=== PATIENT | female | born 1975 | race Asian ===

== ENCOUNTER 2024-04-15 15:55 | Outpatient (AMB) | payer MEDICARE, MEDICAID, SELFPAY ==
--- NOTE | 2024-04-15 15:31 | MHC.PC.OV ---
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 Intake Note: New patient visit Is last menstrual period known: Yes Last menstrual period: 04/11/24 Allergies amoxicillin [AMOXICILLIN] Allergy (Mild, Verified 04/15/24 16:07) UNKNOWN, rash, severe rash carbamazepine [From TEGRETOL] Allergy (Unknown, Verified 04/15/24 16:07) UNKNOWN diphenhydramine [From BENADRYL] Allergy (Unknown, Verified 04/15/24 16:07) UNKNOWN diphtheria,pertussis (acell),tetanu Allergy (Unknown, Verified 04/15/24 16:07) paralyzed Iodinated Contrast Media [IV CONTRAST] Allergy (Unknown, Verified 04/15/24 16:07) HIVES penicillin G Allergy (Unknown, Verified 04/15/24 16:07) severe rash penicillin V Allergy (Unknown, Verified 04/15/24 16:07) rash Penicillins [PENICILLINS] Allergy (Unknown, Verified 04/15/24 16:07) UNKNOWN phenytoin [From DILANTIN] Allergy (Unknown, Verified 04/15/24 16:07) UNKNOWN DPT Allergy (Unknown, Uncoded 04/15/24 16:07) glenna paresis TETANUS & DIPHTHERIA TOX,ADULT Allergy (Unknown, Uncoded 04/15/24 16:07) NUMBNESS Medication List - Last Reconciled 04/15/24 by Natalia Lal MD carbamazepine ER (Carbatrol) mg PO fexofenadine (Telma Allergy) 180 mg PO DAILY Tobacco use date assessed: 04/15/24 Dental Screening Dental Screen Date: 04/15/24 Did you have a dental visit in the last 12 months?: Yes Did you have a dental problem in the last 6 months where you did not have access to dental care?: No Was dental information given to patient?: Patient has dentist HPI HPI Comments History of Present Illness Details This is a 49 year old with 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 Needs all preventive care measures updated. colon ca screening, mammo. [place] with tdap ROS CONSTITUTIONAL: Denies weight loss, fever and chills. HEENT: Denies changes in vision and hearing. RESPIRATORY: Denies SOB and cough. CV: Denies palpitations and CP GI: Denies abdominal pain, nausea, vomiting and diarrhea. : Denies dysuria and urinary frequency. MSK: Denies new myalgia and joint pain. SKIN: Denies rash and pruritus. NEUROLOGICAL: Denies headache PSYCHIATRIC: Denies recent changes in mood. PHYSICAL EXAM: GENERAL: Alert and oriented x 3. NAD EYES: EOMI. Anicteric. HENT: Moist mucous membranes. No scleral icterus. No cervical lymphadenopathy. LUNGS: Clear to auscultation bilaterally. CARDIOVASCULAR: Regular rate and rhythm. No murmur. No JVD. ABDOMEN: Soft, non-tender +bs EXTREMITIES: No edema. Non-tender. SKIN: No rashes or lesions. Warm. NEUROLOGIC: No focal neurological deficits. CN II-XII grossly intact PSYCHIATRIC: Cooperative. Appropriate mood and affect [facility] Medical History (Updated 04/21/24 @ 11:54 by Natalia Lal MD) Epileptic seizures HTN (hypertension) Family History (Updated 04/15/24 @ 16:19 by Miladis Chris CMA) Mother HTN (hypertension) Diabetes Cardiovascular disease Other FH: mental illness Social History (Updated 04/15/24 @ 16:19 by Miladis Chris CMA) Housing: House (With brother and sister and law.) Patient Tobacco Use Status: Never used Tobacco e-Cigarette/Vaping Use: Never Used Second Hand Smoke Exposure: No service: Yes Current occupational status: unemployed Cognitive needs: Yes Hearing needs: No Vision needs: No Female Reproductive History Menstrual Date of last menstrual period: 04/11/24 Questionnaire PHQ-9 Over the last 2 weeks, how often have you been bothered by any of the following problems? 1. Little interest or pleasure in doing things: not at all 2. Feeling down, depressed, or hopeless: not at all 3. Trouble falling or staying asleep, or sleeping too much: not at all 4. Feeling tired or having little energy: not at all 5. Poor appetite or overeating: not at all 6. Feeling bad about yourself - or that you are a failure or have let yourself or your family down: not at all 7. Trouble concentrating on things, such as reading the newspaper or watching television: not at all 8. Moving or speaking so slowly that other people could have noticed. Or the opposite - being so fidgety or restless that you have been moving around a lot more than usual: not at all 9. Thoughts that you would be better off or of hurting yourself in some way: not at all Total score: 0 Depression Screening Interpretation: Negative Depression Screening Done: Yes [id number] - PHQ-9 Billing: Yes Source: Developed by Drs. Tico Massey, Anabel Handley, Jermaine Linda and colleagues, with an educational carolyn from [employer]. Thrive Questionnaire Date Thrive assessed: 04/15/24 I am a: Patient What is your living situation today?: I have a steady place to live Within the past 12 months, did the food you bought not last and you didn't have the money to get more?: Never true Within the past 12 months, did you worry whether your food would run out before you got money to buy more?: Never true Do you have trouble paying for medicines?: No Do you have trouble getting transportation to medical appointments?: No Do you have trouble taking care of your child, family member or friend?: No Do you have trouble with day-to-day activities such as bathing, preparing meals, shopping, managing finances, etc.?: No Are you currently unemployed and looking for a job?: No Are you interested in more education?: No Please select the resources that you would like help with: None Currently or been in a relationship where the following occur: no concerns reported THRIVE Score: 0 AUDIT C Alcohol Use Questionnaire (AUDIT-C) 1. How often do you have a drink containing alcohol?: Never 2. How many drinks containing alcohol do you have on a typical day when you are drinking?: 1 or 2 Total Score: 0 NAM-7 AMB Questionnaire NAM-7 Date ANM - 7 assessed: 04/15/24 Feeling nervous, anxious, or on edge: 0 = Not at all Not being able to stop or control worryin = Not at all Worrying too much about different things: 0 = Not at all Trouble relaxin = Not at all Being so restless that it is hard to sit still: 0 = Not at all Becoming easily annoyed or irritable: 0 = Not at all Feeling afraid as if something awful might happen: 0 = Not at all Total NAM-7 score (0-4 normal; 5-9 mild; 10-14 moderate; 15-21 severe): 0 Source: Developed by Drs. Tico Massey, Anabel Handley, Jermaine Linda and colleagues, with an educational carolyn from [employer]. NAM-7 Assessment Billing NAM-7 Assessment Tool: NAM-7 Assessment 25151 Physical exam (Primary Care) Vital Signs: Last Vital Signs Temp 98.4 F 04/15/24 16:14 Pulse 83 04/15/24 16:14 Resp 12 04/15/24 16:14 BP 136/83 04/15/24 16:14 Pulse Ox 99 04/15/24 16:14 Oxygen Delivery Method Room Air 04/15/24 16:14 BMI result Body Mass Index 32.5 Tobacco/Smoking Status: Tobacco use Status Tobacco use date assessed 04/15/24 04/15/24 16:20 Patient Tobacco Use Status Never used Tobacco 04/15/24 16:20 e-Cigarette/Vaping Use Never Used 04/15/24 16:20 PHQ-9: PHQ-9 Score PHQ-9: Total score 0 04/15/24 16:29 Depression Screening Interpretation: Negative Thrive Assessment: Date of Thrive Assessment Date Thrive assessed 04/15/24 04/15/24 16:20 Currently or been in a relationship where the following occur: no concerns reported Assessment and Plan Assessment & Plan (1) Recurrent UTI: Code(s): N39.0 - Urinary tract infection, site not specified (2) Epileptic seizures: Code(s): G40.909 - Epilepsy, unspecified, not intractable, without status epilepticus Qualifiers: Epilepsy type: unspecified Intractability: not intractable Status epilepticus: without status epilepticus Qualified Code(s): G40.909 - Epilepsy, unspecified, not intractable, without status epilepticus Orders: Orders Lipid Panel 04/15/24 Z12.4 - Encounter for screening for malignant neoplasm of cervix, Z13.0 - Encounter for screening for diseases of the blood and blood-forming organs and certain disorders involving the immune mechanism, Z13.220 - Encounter for screening for lipoid disorders, Z13.228 - Encounter for screening for other metabolic disorders Complete Blood Count Auto Diff 04/15/24 Z12.4 - Encounter for screening for malignant neoplasm of cervix, Z13.0 - Encounter for screening for diseases of the blood and blood-forming organs and certain disorders involving the immune mechanism, Z13.220 - Encounter for screening for lipoid disorders, Z13.228 - Encounter for screening for other metabolic disorders Comprehensive Met. Panel 04/15/24 Z12.4 - Encounter for screening for malignant neoplasm of cervix, Z13.0 - Encounter for screening for diseases of the blood and blood-forming organs and certain disorders involving the immune mechanism, Z13.220 - Encounter for screening for lipoid disorders, Z13.228 - Encounter for screening for other metabolic disorders TSH reflex Free T4 04/15/24 Z12.4 - Encounter for screening for malignant neoplasm of cervix, Z13.0 - Encounter for screening for diseases of the blood and blood-forming organs and certain disorders involving the immune mechanism, Z13.220 - Encounter for screening for lipoid disorders, Z13.228 - Encounter for screening for other metabolic disorders Carbamazepine Tegretol 04/15/24 Z12.4 - Encounter for screening for malignant neoplasm of cervix, Z13.0 - Encounter for screening for diseases of the blood and blood-forming organs and certain disorders involving the immune mechanism, Z13.220 - Encounter for screening for lipoid disorders, Z13.228 - Encounter for screening for other metabolic disorders Referrals Cologuard Test Z12.11 - Encounter for screening for malignant neoplasm of colon, Z12.12 - Encounter for screening for malignant neoplasm of rectum MALTED MILK MIXER Referral Z12.4 - Encounter for screening for malignant neoplasm of cervix Allergy & Immunology Referral Z88.9 - Allergy status to unspecified drugs, medicaments and biological substances Medications: New diazepam (Valium) 1-2 tabs orally as needed for anxiety PRN; 2 tabs 0RF sleep Coding Level of Care Code Tele New Pt Level 4 (73663) Complex EM visit Add On G2211 Diagnoses Recurrent UTI N39.0 Nonintractable epilepsy without status epilepticus, unspecified epilepsy type G40.909 Epilepsy type: unspecified Intractability: not intractable Status epilepticus: without status epilepticus Additional Codes NAM-7 Assessment Billing - NAM-7 Assessment Tool: NAM-7 Assessment [id number] ([id number])
[2024-04-15 16:14] VITALS: BP 136/83; PULSE 83; RESP 12; TEMP 36.9; O2SAT 99; BMI 32.5
== END 2024-04-15 17:02 | disposition home or self-care (01) ==
PROVIDERS: PCP Internal Medicine; Visit Provider Internal Medicine
DX: N39.0 Urinary tract infection, site not specified (principal); G40.909 Epilepsy, unspecified, not intractable, without status epilepticus
CPT/HCPCS: 99214; G2211

== ENCOUNTER → 2024-04-18 13:45 | Outpatient (BNV) | payer MEDICARE, MEDICAID, SELFPAY | PROVIDERS: PCP Internal Medicine; Visit Provider Radiology Diagnostic Radiology | DX: Z12.31 Encounter for screening mammogram for malignant neoplasm of breast (principal) | CPT/HCPCS: 77063; 77067 ==

== ENCOUNTER 2024-04-18 13:46 | Outpatient (REF) | payer MEDICARE, MEDICAID, SELFPAY ==
--- NOTE | ~2024-04-18 | MM_ITS ---
EXAMINATION: MM SCREENING DIGITAL BREAST TOMOSYNTHESIS, BILATERAL CLINICAL INFORMATION: Screening. Asymptomatic. COMPARISON: Mammography: Baseline exam. TECHNIQUE: Digital breast tomosynthesis is performed in both the craniocaudal and mediolateral oblique views along with computer-aided detection (CAD). Synthesized 2D images are generated from the tomosynthesis. An exaggerated 2-D lateral left CC view was also obtained. Patient is mentally challenged, and 2 technologists were required to obtain reasonable quality images. Interpretation will be provided in light of this. FINDINGS: The breasts are heterogeneously dense, which may obscure small masses (ACR BI-RADS breast composition Category c). In the right breast, anterior one third, 9:00 axis, there are linear grouped calcifications which appear related to an underlying blood vessel, demonstrate tram tracking, and are therefore vascular in nature. A rounded asymmetry on the right cc view, slightly lateral to the nipple line, posterior one third, is most likely superimposition artifact on the tomographic views, although we will obtain a small paddle CC and MLO spot compression view for proof. In addition we will obtain a 90 degree mediolateral view right breast. Otherwise there are no suspicious masses, suspicious grouped calcifications, or areas of architectural distortion in either breast. There is no skin or axillary abnormality. MM/MM tomosynthesis screening BI IMPRESSION: 1 view asymmetry right breast CC view only, without definite MLO correlate. This has an appearance of superimposition artifact on tomographic views. We will obtain diagnostic views to definitively characterize to include small paddle spot compression 3-D right CC and MLO views, right 3-D CC full-field rolled medial and rolled lateral views, as well as a full-field 3-D 90 degree ML view. Ultrasound will be scheduled at the discretion of the interpreting radiologist. There are no suspicious abnormalities in the left breast. Subtle calcifications right breast 9:00 axis are likely vascular, demonstrate tram tracking, and do not meet biopsy threshold. ASSESSMENT: BI-RADS BI-RADS 0 - Incomplete: Needs additional Imaging. RECOMMENDATION: 1. Additional views of the right breast. 2. Targeted ultrasound if warranted after review of the additional views. 3. Radiology department staff will contact the patient for additional imaging. Additional Imaging required This examination should not preclude the clinical evaluation of a suspicious palpable abnormality.
== END 2024-04-18 13:47 | disposition home or self-care (01) ==
LOC: HO.MAMMO 13:46
PROVIDERS: PCP Internal Medicine; Visit Provider Internal Medicine
DX: Z12.31 Encounter for screening mammogram for malignant neoplasm of breast (principal)
CPT/HCPCS: 77063; 77067

== ENCOUNTER 2024-06-03 14:02 | Outpatient (REF) | payer MEDICARE, MEDICAID, SELFPAY ==
--- NOTE | ~2024-06-03 | MM_ITS ---
EXAMINATION: MM DIAGNOSTIC DIGITAL BREAST TOMOSYNTHESIS, RIGHT CLINICAL INFORMATION: Evaluate one view asymmetry right breast seen on CC view just lateral to the nipple line, posterior one third, with possible correlate on the superior MLO view. COMPARISON: Mammography: 04/18/2024. TECHNIQUE: Digital breast tomosynthesis is performed in the following views: Full-field digital 3-D right ML view x2, 3-D spot compression right MLO view, and 3-D spot compression right CC view x2. Computer-aided diagnosis was used for this study. FINDINGS: The breasts are heterogeneously dense, which may obscure small masses (ACR BI-RADS breast composition Category c). Spot compression and additional views demonstrate the asymmetry does not persist and effaces completely. Findings are consistent with superimposition artifact of normal overlapping fibroglandular tissues. There are no suspicious findings. MM/MM tomosynthesis diagnostic RT IMPRESSION: -There are no persistent findings suspicious for malignancy. -Recommend the patient resume routine annual screening in one year. ASSESSMENT: BI-RADS BI-RADS 1 - Negative RECOMMENDATION: 1 year F/U Results were provided to the patient at time of visit by the technologist. This patient's information was entered into a reminder system with a target due date for their next mammogram.
== END 2024-06-03 14:03 | disposition home or self-care (01) ==
LOC: HO.MAMMO 14:02
PROVIDERS: PCP Internal Medicine; Visit Provider Internal Medicine
DX: N64.89 Other specified disorders of breast (principal)
CPT/HCPCS: 77061; 77065

== ENCOUNTER → 2024-06-03 14:30 | Outpatient (BNV) | payer MEDICARE, MEDICAID, SELFPAY | PROVIDERS: PCP Internal Medicine; Visit Provider Radiology Diagnostic Radiology | DX: R92.8 Other abnormal and inconclusive findings on diagnostic imaging of breast (principal) | CPT/HCPCS: 77065; G0279 ==

== ENCOUNTER 2024-07-09 09:40 | Outpatient (REF) | payer MEDICARE, MEDICAID, SELFPAY ==
[2024-07-09 09:55] LABS: MANUAL DIFF FLAG NO
[2024-07-09 10:32] LABS: Basophils Percent Auto 0.7 % (0-2); Eosinophils Absolute Auto 0.1 X10*3/uL (0.0-0.4); Hematocrit 42.7 % (37.0-47.0); Hemoglobin 14.6 g/dl (12.0-16.0); Imm Gran Abs Auto 0.01 X10*3/uL (0.00-0.03); Imm Gran Pct Auto 0.2 % (0.0-0.4); Lymphocytes Absolute Auto 1.3 X10*3/uL (1.2-4.9); Lymphocytes Percent Auto 30.1 % (20-40); Mean Corpuscular HGB Conc 34.2 g/dl (31.0-35.0); Mean Corpuscular Hemoglobin 33.1 pg (27.0-33.0); Mean Corpuscular Volume 96.8 fL (80.0-98.0); Mean Platelet Volume 9.4 fL (9.4-12.3); Monocytes Absolute Auto 0.3 X10*3/uL (0.1-1.2); Monocytes Percent Auto 7.7 % (2-11); Neutrophils Absolute Auto 2.6 x10*3/uL (2.0-8.3); Neutrophils Percent Auto 59.3 % (45-73); Platelet Count 156 X10*3/uL (160-400); Red Blood Count 4.41 X10*6/uL (4.20-5.50); White Blood Count 4.4 X10*3/uL (4.8-10.8)
[2024-07-09 11:19] LABS: Carbamazepine Tegretol 10.4 mcg/mL (5.0-12.0)
[2024-07-09 11:26] LABS: Alanine Aminotransferase 16 U/L (0-31); Alkaline Phosphatase 134 U/L (39-117); Anion Gap 11 (12-20); Aspartate Amino Transferase 15 U/L (5-31); Bilirubin Total 0.5 mg/dL (0.0-1.0); Blood Urea Nitrogen 11 mg/dL (9-16); Calcium 8.9 mg/dL (8.4-10.2); Carbon Dioxide 25 mmol/L (22-29); Chloride 105 mmol/L (96-108); Cholesterol 191 mg/dL (<200); Estimated Glomerular Filt Rate > 60; Glucose Random 93 mg/dL (60-115); HDL Cholesterol 58 mg/dL (>40); LDL Cholesterol Calculated 119 mg/dL (<100); Potassium 3.9 mmol/L (3.3-5.1); Sodium 137 mmol/L (135-145); TSH reflex Free T4 1.72 uIU/mL (0.32-4.0); Total Protein 7.9 g/dL (6.5-8.0); Triglycerides 73 mg/dL (<150)
== END 2024-07-09 09:41 | disposition home or self-care (01) ==
LOC: HO.LAB 09:40
PROVIDERS: PCP Internal Medicine; Visit Provider Internal Medicine
DX: Z13.0 Encounter for screening for diseases of the blood and blood-forming organs and certain disorders involving the immune mechanism (principal); Z13.228 Encounter for screening for other metabolic disorders; Z13.220 Encounter for screening for lipoid disorders; Z12.4 Encounter for screening for malignant neoplasm of cervix; Z20.2 Contact with and (suspected) exposure to infections with a predominantly sexual mode of transmission
CPT/HCPCS: 36415; 80053; 80061; 80156; 84443; 85025

== ENCOUNTER 2024-08-28 10:08 | Outpatient (AMB) | payer MEDICARE, MEDICAID, SELFPAY ==
--- NOTE | 2024-08-28 10:12 | A.OFFVIS_ITS ---
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 Intake Note: Accompanied by Step MotherSherie Precision Lens Grinder: Precision Lens Grinder Present (Patricia) Accompanied by: Step Parent Allergies amoxicillin [AMOXICILLIN] Allergy (Mild, Verified 08/28/24 10:25) UNKNOWN, rash, severe rash carbamazepine [From TEGRETOL] Allergy (Unknown, Verified 08/28/24 10:25) UNKNOWN diphenhydramine [From BENADRYL] Allergy (Unknown, Verified 08/28/24 10:25) UNKNOWN diphtheria,pertussis (acell),tetanu Allergy (Unknown, Verified 08/28/24 10:25) paralyzed Iodinated Contrast Media [IV CONTRAST] Allergy (Unknown, Verified 08/28/24 10:25) HIVES penicillin G Allergy (Unknown, Verified 08/28/24 10:25) severe rash penicillin V Allergy (Unknown, Verified 08/28/24 10:25) rash Penicillins [PENICILLINS] Allergy (Unknown, Verified 08/28/24 10:25) UNKNOWN phenytoin [From DILANTIN] Allergy (Unknown, Verified 08/28/24 10:25) UNKNOWN DPT Allergy (Unknown, Uncoded 04/15/24 16:07) glenna paresis TETANUS & DIPHTHERIA TOX,ADULT Allergy (Unknown, Uncoded 04/15/24 16:07) NUMBNESS Is last menstrual period known: Yes Last menstrual period: 08/19/24 HPI Comments Details: She is a premenopausal woman presenting for new patient annual examination, accompanied by her step mom Debbie. Doing well with no concerns: LMP 08/19/24 usually last 3 days. She reports spotting for the last few days. No pelvic pain or urinary symptoms. Admits to not hydrating well 2 glasses of water a day and dark-colored urine. She tries to eat healthy and stays active with exercise-walking. Currently is never sexually active. She denies vaginal itching and irritation. STI screening offered; she declined. No family history patient adopted. First pelvic exam. Mammogram: 2023. Lives with her brother Teddy and his family. 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 Formerly lived with her mom who earlier this year. [facility] Medical History (Updated 08/28/24 @ 10:56 by Grace Bravo, CNM) Epileptic seizures HTN (hypertension) Family History (Updated 04/15/24 @ 16:19 by Miladis Chris CMA) Mother HTN (hypertension) Diabetes Cardiovascular disease Other FH: mental illness Social History (Updated 04/15/24 @ 16:19 by Miladis Chris CMA) Housing: House (With brother and sister and law.) Patient Tobacco Use Status: Never used Tobacco e-Cigarette/Vaping Use: Never Used Second Hand Smoke Exposure: No service: Yes Current occupational status: unemployed Cognitive needs: Yes Hearing needs: No Vision needs: No Female Reproductive History Menstrual Duration of menses: 3-5 days Date of last menstrual period: 08/19/24 Total pregnancies: 0 Date of Mammogram: 06/03/24 (bi-rad 1) Review of Systems Const All systems reviewed & are unremarkable except as noted in HPI and below Reports as per HPI Eyes Reports no additional complaints ENT Reports no additional complaints Card Reports no additional complaints Resp Reports no additional complaints GI Reports as per HPI and Reports no additional complaints Reports as per HPI Musc Reports no additional complaints Skin/Breast Reports as per HPI Neuro Reports no additional complaints Psych Reports no additional complaints Endo Reports no additional complaints Alex/Lymph Reports no additional complaints Aller/Immun Reports no additional complaints Physical Exam Vital Signs: Last Vital Signs BP 118/74 08/28/24 10:26 BMI result Body Mass Index 32.3 Const General: cooperative, healthy appearing, no acute distress, well developed and alert Orientation/consciousness: patient oriented x3 HEENT Head: Yes normal to inspection Eyes General: appearance normal, both eyes and all related structures Neck Neck: Yes normal visual inspection Thyroid: Thyroid normal Chest Chest palpation & inspection: normal inspection of the chest and other (no puckering, dimpling, peau de orange, retraction, discharge, masses) Breast/axilla inspection: normal inspection of the breasts Breast/axilla palpation: normal palpation of the breasts Resp Effort & Inspection: normal respiratory effort GI Inspection: Yes normal to inspection Palpation (GI): Soft to palpation Rectal Exam - Female: deferred Other: First pelvis-limited vaginal opening, utilized smallest Avina available. General: Yes bladder normal to palpation External Female Exam: normal external appearance and normal appearance of the urethra Speculum Exam - Vagina: normal appearance of the vagina, normal palpation and normal vaginal discharge Speculum Exam - Cervix: normal appearance of the cervix, normal palpation and Cervical mass present ( appears polypoid, pedunculated) Bimanual exam- vagina & uterus: normal bimanual exam, normal palpation, uterine size normal, bladder normal to palpation, normal palpation, non-tender and other (Bled readily with Pap) Bimanual Exam- Adnexa, other: no masses Skin General skin exam: no rashes or lesions noted Rashes: no rashes Neuro General: patient oriented x3 Cognition (Neuro): normal cognition Extrem General: Yes normal to inspection Psych Attitude: cooperative Thought process: Normal thought process present Results AMB Urinalysis, Automated UA Leukoctes 1 Rebecca/uL Last Edit by Becca Taylor Mariola on 08/28/24 10:34 UA Nitrite Negative Last Edit by Becca Taylor Mariola on 08/28/24 10:34 UA Urobilinogen 0 mg/dL Last Edit by Becca Taylor [facility] on 08/28/24 10:3 4 UA Protein 0.5 mg/dL Last Edit by Becca Taylor Mariola on 08/28/24 10:34 UA pH 6.5 Last Edit by Becca Taylor [facility] on 08/28/24 10:34 UA Blood 0 Zain/uL Last Edit by Becca Taylor Mariola on 08/28/24 10:[address] 1.015 Last Edit by Becca Taylor [facility] on 08/28/24 10:34 UA Ketone Negative Last Edit by Becca Taylor Mariola on 08/28/24 10:34 UA Bilirubin 0 mg/dL Last Edit by Becca Taylor [facility] on 08/28/24 10:34 UA Glucose 0 mg/dL Last Edit by Becca Taylor [facility] on 08/28/24 10:34 Results Reviewed Results Reviewed: Laboratory Last Values Urine pH (Auto) 6.5 08/28/24 10:[address] (Auto) 1.015 08/28/24 10:26 Urine Protein (Auto) 0.5 mg/dL 08/28/24 10:26 Glucose (UA)(Auto) 0 mg/dL 08/28/24 10:26 Urine Ketones (Auto) Negative 08/28/24 10:26 Urine Blood (Auto) 0 Zain/uL 08/28/24 10:26 Urine Nitrite (Auto) Negative 08/28/24 10:26 Urine Bilirubin (Auto) 0 mg/dL 08/28/24 10:26 Urine Urobilinogen (Auto) 0 mg/dL 08/28/24 10:26 Leukocyte Esterase (Auto) 1 Rebecca/uL 08/28/24 10:26 Assessment & Plan Assessment & Plan (1) Encounter for well woman exam with routine gynecological exam: Code(s): Z01.419 - Encounter for gynecological examination (general) (routine) without abnormal findings Category: Medical (2) Cervical polyp: Code(s): N84.1 - Polyp of cervix uteri Plan Discussed: Current recommendations for pap smears per ASCCP guidelines. Breast awareness and periodic breast exams. Return to the office for polypectomy procedure, anticipatory guidance reviewed. Cervical polyp described-with the use of web pictures. Maintain a healthy lifestyle including a well balanced diet and routine exercise. Use condoms for STI and prevention if ever sexually active. Mammogram yearly. Speaking to her primary care regarding setting up appointment for a colonoscopy. Patient verbalizes understanding and agrees to the plan of care. She was given opportunity to ask questions and all questions were answered to the best of my ability. RTO in one year for annual rn gynecology examination. This note is constructed using voice recognition software. While every effort has been made to ensure accuracy, museum attendant errors may have been included. Orders: Orders AMB Urinalysis Automated Today N39.0 - Urinary tract infection, site not specified, R30.0 - Dysuria Pap Smear Today Z01.419 - Encounter for gynecological examination (general) (routine) without abnormal findings HPV High risk Today Z01.419 - Encounter for gynecological examination (general) (routine) without abnormal findings Coding Level of Care Code New Pt Prev Care 40-64y(42646) Diagnoses Encounter for well woman exam with routine gynecological exam Z01.419 Cervical polyp N84.1
[2024-08-28 10:26] VITALS: BP 118/74; BMI 32.3
== END 2024-08-28 11:23 | disposition home or self-care (01) ==
LOC: HO.HWS 10:08
PROVIDERS: PCP Internal Medicine; Referring Provider Internal Medicine; Visit Provider Advanced Practice Midwife
DX: Z01.419 Encounter for gynecological examination (general) (routine) without abnormal findings (principal); N84.1 Polyp of cervix uteri; R30.0 Dysuria; N39.0 Urinary tract infection, site not specified
CPT/HCPCS: G0101; Q0091

== ENCOUNTER 2024-08-28 10:08 | Outpatient (REF) | payer MEDICARE, MEDICAID, SELFPAY ==
[2024-08-29 10:27] LABS: HPV 16,18/45 See PAP report
== END 2024-08-28 10:09 | disposition home or self-care (01) ==
LOC: HO.LNP 10:08
PROVIDERS: PCP Internal Medicine; Visit Provider Advanced Practice Midwife
DX: Z01.419 Encounter for gynecological examination (general) (routine) without abnormal findings (principal); Z11.51 Encounter for screening for human papillomavirus (HPV); N84.1 Polyp of cervix uteri; N39.0 Urinary tract infection, site not specified; R30.0 Dysuria
CPT/HCPCS: 81003; 87624; 88175; G0101; Q0091

== ENCOUNTER 2024-10-03 13:02 | Outpatient (AMB) | payer MEDICARE, MEDICAID, SELFPAY ==
--- NOTE | 2024-10-03 13:06 | MHC.OFFVIS ---
Vital Signs 10/03/24 13:10 Height 4 ft 11 in Weight 160 lb BMI 32.3 BP 110/76 Intake Visit Reasons: Polypectomy/30 mins Intake Note: Step mother Debbie Monotype Keyboard Operator: Monotype Keyboard Operator Present (Patricia) Accompanied by: Mother Allergies amoxicillin [AMOXICILLIN] Allergy (Mild, Verified 10/03/24 13:10) UNKNOWN, rash, severe rash carbamazepine [From TEGRETOL] Allergy (Unknown, Verified 10/03/24 13:10) UNKNOWN diphenhydramine [From BENADRYL] Allergy (Unknown, Verified 10/03/24 13:10) UNKNOWN diphtheria,pertussis (acell),tetanu Allergy (Unknown, Verified 10/03/24 13:10) paralyzed Iodinated Contrast Media [IV CONTRAST] Allergy (Unknown, Verified 10/03/24 13:10) HIVES penicillin G Allergy (Unknown, Verified 10/03/24 13:10) severe rash penicillin V Allergy (Unknown, Verified 10/03/24 13:10) rash Penicillins [PENICILLINS] Allergy (Unknown, Verified 10/03/24 13:10) UNKNOWN phenytoin [From DILANTIN] Allergy (Unknown, Verified 10/03/24 13:10) UNKNOWN DPT Allergy (Unknown, Uncoded 04/15/24 16:07) glenna paresis TETANUS & DIPHTHERIA TOX,ADULT Allergy (Unknown, Uncoded 04/15/24 16:07) NUMBNESS Is last menstrual period known: Yes Last menstrual period: 09/16/24 HPI Comments Details: Patient is here today for a polypectomy accompanied by her step mom Debbie. She reports she has had pelvic pain since her 1st visit and additional upper abdominal pain when she gets upset. She has no vaginal bleeding. Denies any urinary symptoms. Upset and tearful discussing the loss of her mother and how hard it is for her at this time a year. She admits to have good support with family and friends. COUNT INCLUDES THE [facility] Medical History (Updated 10/03/24 @ 14:15 by Grace Bravo CNM) Pelvic pain Epileptic seizures HTN (hypertension) Family History (Updated 04/15/24 @ 16:19 by Miladis Chris CMA) Mother HTN (hypertension) Diabetes Cardiovascular disease Other FH: mental illness Social History (Updated 04/15/24 @ 16:19 by Miladis Chris CMA) Housing: House (With brother and sister and law.) Patient Tobacco Use Status: Never used Tobacco e-Cigarette/Vaping Use: Never Used Second Hand Smoke Exposure: No service: Yes Current occupational status: unemployed Cognitive needs: Yes Hearing needs: No Vision needs: No Female Reproductive History Menstrual Date of last menstrual period: 09/16/24 Review of Systems Const All systems reviewed & are unremarkable except as noted in HPI and below Physical Exam Vital Signs: Last Vital Signs BP 110/76 10/03/24 13:10 BMI result Body Mass Index 32.3 Const General: cooperative, healthy appearing and no acute distress Orientation/consciousness: patient oriented x3 GI Inspection: Yes normal to inspection Palpation (GI): Soft to palpation and Other GI palpation findings present (Nontender) Rectal Exam - Female: visual inspection normal Other: Tense with the exam, small micro bur lesions bilateral hymen with opening a the small Avina. General: Yes bladder normal to palpation External Female Exam: normal appearance of the urethra Speculum Exam - Vagina: normal appearance of the vagina, normal palpation and normal vaginal discharge Speculum Exam - Cervix: normal appearance of the cervix, normal palpation and Other cervical findings present (Cervical polyp is not identified today.) Bimanual exam- vagina & uterus: normal bimanual exam, normal palpation, uterine size normal, bladder normal to palpation, normal palpation, uterine shape normal and non-tender Bimanual Exam- Adnexa, other: normal adnexae Neuro General: patient oriented x3 Assessment & Plan Assessment & Plan (1) Pelvic pain: Code(s): R10.2 - Pelvic and perineal pain Category: Medical Plan Discussed: Polypectomy not required. Plan pelvic ultrasound due to her pelvic pain. Spotting from the exam today should resolve in a few days. If any bleeding occurs that is heavy or prolonged to call immediately for evaluation. If pain becomes stronger or any other concerns to call the office for a sooner follow up. Discuss the grief process and healing. Follow up pelvic ultrasound, okay to have a tele visit-patient's family use preference. Cervical cultures obtained. The patient expressed understanding and agreement with the plan of care. All of her questions and concerns were addressed to the best of my ability. This note is constructed using voice recognition software. While every effort has been made to ensure accuracy, coin machine service repairer errors may have been included. Orders: Orders CT NG by PCR Today R10.2 - Pelvic and perineal pain US pelvic and transvaginal Today R10.2 - Pelvic and perineal pain Bacterial Vaginosis Panel Today R10.2 - Pelvic and perineal pain Coding Level of Care Code Est Pt Level 3 (41871) Diagnoses Pelvic pain R10.2
[2024-10-03 13:10] VITALS: BP 110/76; BMI 32.3
== END 2024-10-03 14:19 | disposition home or self-care (01) ==
PROVIDERS: PCP Internal Medicine; Visit Provider Advanced Practice Midwife
DX: R10.2 Pelvic and perineal pain (principal)
CPT/HCPCS: 99213

== ENCOUNTER 2024-10-03 13:02 | Outpatient (REF) | payer MEDICARE, MEDICAID, SELFPAY | END 2024-10-03 13:03 | disposition home or self-care (01) | LOC: HO.LNP 13:02 | PROVIDERS: PCP Internal Medicine; Visit Provider Advanced Practice Midwife | DX: R10.2 Pelvic and perineal pain (principal) | CPT/HCPCS: 0352U; 87491; 87591; 99212; 99459 ==

== ENCOUNTER 2024-10-03 14:02 | Outpatient (REF) | payer MEDICARE, MEDICAID, SELFPAY ==
[2024-10-04 15:06] LABS: CT PCR NOT DETECTED (Not Detect.); NG PCR NOT DETECTED (Not Detect.)
[2024-10-04 16:19] LABS: Bacterial Vaginosis PCR NEGATIVE (Negative); Candida Group PCR NOT DETECTED (Not Detect); Candida glab krusei PCR NOT DETECTED (Not Detect); Trichomonas vaginalis PCR NOT DETECTED (Not Detect)
== END 2024-10-03 14:03 | disposition home or self-care (01) ==
LOC: HO.LAB 14:02
PROVIDERS: Visit Provider Advanced Practice Midwife
DX: Z13.89 Encounter for screening for other disorder (principal)
CPT/HCPCS: 0352U; 87491; 87591

== ENCOUNTER 2024-10-30 12:38 | Outpatient (REF) | payer MEDICARE, MEDICAID, SELFPAY ==
--- NOTE | ~2024-10-30 | US_ITS ---
CLINICAL HISTORY: R10.2 - Pelvic and perineal pain US pelvis transvaginal Comparison: None Findings: Transvaginal scanning performed. Anteverted uterus is 8.1 cm length. Normal myometrium. Endometrium 9.0 mm thickness. Right ovary not visualized. Left ovary 5.3 x 3.4 x 4.1 cm. Normal color Doppler of left ovary. No free fluid. IMPRESSION: 1. No acute findings This document has been electronically signed by: Teddy Rebollar MD on 10/31/2024 18:15:38
== END 2024-10-30 12:39 | disposition home or self-care (01) ==
LOC: HO.US 12:38
PROVIDERS: PCP Internal Medicine; Visit Provider Advanced Practice Midwife
DX: R10.2 Pelvic and perineal pain (principal)
CPT/HCPCS: 76830; 76856

== ENCOUNTER → 2024-10-30 12:40 | Outpatient (BNV) | payer MEDICARE, MEDICAID, SELFPAY | PROVIDERS: PCP Internal Medicine; Visit Provider Specialist | DX: R10.2 Pelvic and perineal pain (principal) | CPT/HCPCS: 76830; 76856 ==

== ENCOUNTER 2024-11-26 09:36 | Outpatient (AMB) | payer MEDICARE, MEDICAID, SELFPAY ==
--- NOTE | 2024-11-26 09:36 | MHC.OFFVIS ---
Intake Visit Reasons: TV Ultrasound follow up Intake Note: cell #[phone] sister in law Nicole Health Researcher: Health Researcher Present Accompanied by: Sister Allergies amoxicillin [AMOXICILLIN] Allergy (Mild, Verified 11/26/24 09:37) UNKNOWN, rash, severe rash carbamazepine [From TEGRETOL] Allergy (Unknown, Verified 11/26/24 09:37) UNKNOWN diphenhydramine [From BENADRYL] Allergy (Unknown, Verified 11/26/24 09:37) UNKNOWN diphtheria,pertussis (acell),tetanu Allergy (Unknown, Verified 11/26/24 09:37) paralyzed Iodinated Contrast Media [IV CONTRAST] Allergy (Unknown, Verified 11/26/24 09:37) HIVES penicillin G Allergy (Unknown, Verified 11/26/24:37) severe rash penicillin V Allergy (Unknown, Verified 11/26/24 09:37) rash Penicillins [PENICILLINS] Allergy (Unknown, Verified 11/26/24 09:37) UNKNOWN phenytoin [From DILANTIN] Allergy (Unknown, Verified 11/26/24 09:37) UNKNOWN DPT Allergy (Unknown, Uncoded 11/26/24 09:37) glenna paresis TETANUS & DIPHTHERIA TOX,ADULT Allergy (Unknown, Uncoded 11/26/24 09:37) NUMBNESS Is last menstrual period known: Yes HPI Comments Details: Tele Health Visit Total time I personally spent on visit and management today: 21 minutes. Time spent included review of pertinent office notes in the electronic health record; review of laboratory and imaging results; review of personal family medical history; performing physical exam; discussing diagnosis and plan of care with the patient; documenting the encounter in the EMR. Patient presents to discuss: Pelvic ultrasound findings, due to history of pelvic pain. She has accompany by her [id number] Destiny for the video chat. She denies any pelvic pain at this time, Destiny adds that after a thorough discussion they believe the discomfort was due to her anxiety after her Pap smear. She tends to have abdominal pain when she is upset. [facility] Medical History (Updated 10/03/24 @ 14:15 by Grace Bravo CNM) Pelvic pain Epileptic seizures HTN (hypertension) Family History (Updated 04/15/24 @ 16:19 by Miladis Chris CMA) Mother HTN (hypertension) Diabetes Cardiovascular disease Other FH: mental illness Social History (Updated 04/15/24 @ 16:19 by Miladis Chris CMA) Housing: House (With brother and sister and law.) Patient Tobacco Use Status: Never used Tobacco e-Cigarette/Vaping Use: Never Used Second Hand Smoke Exposure: No service: Yes Current occupational status: unemployed Cognitive needs: Yes Hearing needs: No Vision needs: No Review of Systems Const All systems reviewed & are unremarkable except as noted in HPI and below Endo Reports no additional complaints Physical Exam Const General: cooperative, healthy appearing and no acute distress Psych Appearance: well kempt Attitude: cooperative Thought process: Normal thought process present Telehealth Telehealth Telehealth Platform: HaveMyShift Location of provider rendering services: practice address Location of patient: address on file Patient Identification confirmed using: Name, : Yes Telehealth method: video Patient verbally consented to treatment: Yes Patient verbally consented to billing insurance company: Yes Patient informed of any privacy concerns related to visit: Yes Results Reviewed Results Reviewed: [address] [address] Ultrasound Report Signed Patient: Mary Ann Isbell MR#: [id number] : 1975 Acct:[id number] Age/Sex: 49 / F ADM Date: 10/30/24 Loc: HO.US Attending Dr: Grace Bravo CNM Ordering Physician: Grace Bravo CNM Date of Service: 10/30/24 Procedure(s): US pelvic and transvaginal Accession Number(s): [id number] cc: Grace Bravo CNM; Natalia Lal MD~ CLINICAL HISTORY: R10.2 - Pelvic and perineal pain US pelvis transvaginal Comparison: None Findings: Transvaginal scanning performed. Anteverted uterus is 8.1 cm length. Normal myometrium. Endometrium 9.0 mm thickness. Right ovary not visualized. Left ovary 5.3 x 3.4 x 4.1 cm. Normal color Doppler of left ovary. No free fluid. IMPRESSION: 1. No acute findings This document has been electronically signed by: Teddy Rebollar MD on 10/31/2024 18:15:38 Dictated By: Teddy Rebollar MD Signed By: <Electronically signed by Teddy Rebollar MD in OV> 10/31/241815 DD/ 14 TD/TT: 10/31/241814 Multiple Resaw Operator: Assessment & Plan Assessment & Plan (1) Encounter to discuss test results: Code(s): Z71.2 - Person consulting for explanation of examination or test findings Plan Discuss pelvic ultrasound findings-normal. A cervical polyp was not seen at last exam after her Pap smear. Monitor menstrual cycles, report any unscheduled bleeding, bleeding episodes <24 days apart or heavy/prolonged menstrual bleeding. Call the office for a follow up for any concerns. Plans to call to schedule her mammogram for May. Annual exam next August appointment information provided. Self-help measures for anxiety including breathing techniques. The patient expressed understanding and agreement with the plan of care. All of her questions and concerns were addressed to the best of my ability. This note is constructed using voice recognition software. While every effort has been made to ensure accuracy, nursing education consultant errors may have been included. Coding Level of Care Code Tele Est Pt Level 3 (91927) Diagnoses Encounter to discuss test results Z71.2
== END 2024-11-26 10:21 | disposition home or self-care (01) ==
LOC: HO.HWS 09:36
PROVIDERS: PCP Internal Medicine; Visit Provider Advanced Practice Midwife
DX: R10.2 Pelvic and perineal pain (principal); Z71.2 Person consulting for explanation of examination or test findings
CPT/HCPCS: 99213

== ENCOUNTER → 2024-11-26 09:36 | Outpatient (BNVA) | payer MEDICARE, MEDICAID, SELFPAY | PROVIDERS: PCP Internal Medicine; Visit Provider Advanced Practice Midwife ==

== ENCOUNTER → 2025-04-21 11:15 | Outpatient (BNV) | payer MEDICARE, SELFPAY | PROVIDERS: PCP Internal Medicine; Visit Provider Internal Medicine | DX: Z12.31 Encounter for screening mammogram for malignant neoplasm of breast (principal) | CPT/HCPCS: 77063; 77067 ==

== ENCOUNTER 2025-04-21 11:16 | Outpatient (REF) | payer MEDICARE, SELFPAY | END 2025-04-21 11:17 | disposition home or self-care (01) | LOC: HO.MAMMO 11:16 | PROVIDERS: PCP Internal Medicine; Visit Provider Internal Medicine | DX: Z12.31 Encounter for screening mammogram for malignant neoplasm of breast (principal) | CPT/HCPCS: 77063; 77067 ==

== ENCOUNTER 2025-05-19 14:14 | Outpatient (AMB) | payer MEDICARE, MEDICAID, SELFPAY ==
[2025-05-19 14:24] VITALS: BP 136/94; PULSE 79; RESP 12; TEMP 37; O2SAT 99; BMI 31.7
--- NOTE | 2025-05-19 14:24 | A.OFFPC_ITS ---
Vital Signs 05/19/25 14:24 05/19/25 14:33 Height 4 ft 11 in Weight 157 lb BMI 31.7 BP 136/94 H 136/84 Blood Pressure Location Lt brachial Lt brachial Position Sitting Sitting Respiration 12 Pulse 79 Pulse Source Pulse Oximeter Temp 98.6 F Temp Source Oral Pulse Oximetry (%) 99 Oxygen Delivery Method Room Air Intake Visit Reasons: Annual Wellness Intake Note: Physical. Got allergy tested at [facility] and it was determined pt is not allergic to Amoxicillin. Asphalt Paver Required: No Allergies carbamazepine (From TEGRETOL) Allergy (Unknown, Verified 05/19/25 14:25) UNKNOWN diphenhydramine (From BENADRYL) Allergy (Unknown, Verified 05/19/25 14:25) UNKNOWN diphtheria,pertussis (acell),tetanu Allergy (Unknown, Verified 05/19/25 14:25) paralyzed Iodinated Contrast Media (IV CONTRAST) Allergy (Unknown, Verified 05/19/25 14:25) HIVES phenytoin (From DILANTIN) Allergy (Unknown, Verified 05/19/25 14:25) UNKNOWN DPT Allergy (Unknown, Uncoded 05/19/25 14:25) glenna paresis TETANUS & DIPHTHERIA TOX,ADULT Allergy (Unknown, Uncoded 05/19/25 14:25) NUMBNESS Tobacco use date assessed: 05/19/25 Dental Screening Dental Screen Date: 05/19/25 Did you have a dental visit in the last 12 months?: Yes Did you have a dental problem in the last 6 months where you did not have access to dental care?: No Was dental information given to patient?: Patient has dentist HPI HPI Comments History of Present Illness Details This is a 50 year old with 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 Saw neurology this year. Taken off medications. No interval seizures Reports intermittent upper extremity weakness and tingling [place] with tdap Referred to GI for colonoscopy. Could not complete cologuard. Mammo UTD, further testing ordered Following biology laboratory assistant Nov ROS CONSTITUTIONAL: Denies weight loss, fever and chills. HEENT: Denies changes in vision and hearing. RESPIRATORY: Denies SOB and cough. CV: Denies palpitations and CP GI: Denies abdominal pain, nausea, vomiting and diarrhea. : Denies dysuria and urinary frequency. MSK: Denies new myalgia and joint pain. SKIN: Denies rash and pruritus. NEUROLOGICAL: Denies headache PSYCHIATRIC: Denies recent changes in mood. PHYSICAL EXAM: GENERAL: Alert and oriented x 3. NAD EYES: EOMI. Anicteric. HENT: Moist mucous membranes. No scleral icterus. No cervical lymphadenopathy. LUNGS: Clear to auscultation bilaterally. CARDIOVASCULAR: Regular rate and rhythm. No murmur. No JVD. ABDOMEN: Soft, non-tender +bs EXTREMITIES: No edema. Non-tender. SKIN: No rashes or lesions. Warm. NEUROLOGIC: No focal neurological deficits. CN II-XII grossly intact PSYCHIATRIC: Cooperative. Appropriate mood and affect [facility] Medical History Pelvic pain Epileptic seizures HTN (hypertension) Family History Mother HTN (hypertension) Diabetes Cardiovascular disease Other FH: mental illness Social History Housing: House (With brother and sister and law.) Patient Tobacco Use Status: Never used Tobacco e-Cigarette/Vaping Use: Never Used Second Hand Smoke Exposure: No service: Yes Current occupational status: unemployed Cognitive needs: Yes Hearing needs: No Vision needs: No Questionnaire Thrive Questionnaire Date Thrive assessed: 04/15/24 AUDIT C Alcohol Use Questionnaire (AUDIT-C) 1. How often do you have a drink containing alcohol?: Never 3. How often do you have six or more drinks on one occasion?: Never Total Score: 0 NAM-7 AMB Questionnaire NAM-7 Date NAM - 7 assessed: 04/15/24 Source: Developed by Drs. Tico Massey, Anabel Handley, Jermaine Linda and colleagues, with an educational carolyn from [employer]. Physical exam (Primary Care) Vital Signs: Last Vital Signs Temp 98.6 F 05/19/25 14:24 Pulse 79 05/19/25 14:24 Resp 12 05/19/25 14:24 BP 136/84 05/19/25 14:33 Pulse Ox 99 05/19/25 14:24 Oxygen Delivery Method Room Air 05/19/25 14:24 BMI result Body Mass Index 31.7 Tobacco/Smoking Status: Tobacco use Status Tobacco use date assessed 05/19/25 05/19/25 14:32 Patient Tobacco Use Status Never used Tobacco 05/19/25 14:32 e-Cigarette/Vaping Use Never Used 05/19/25 14:32 Thrive Assessment: Date of Thrive Assessment Date Thrive assessed 04/15/24 05/19/25 14:32 Coding Level of Care Code Est Pt Prev Care 40-64y(19768) Diagnoses Physical exam Z00.00 Nonintractable epilepsy without status epilepticus, unspecified epilepsy type G40.909 Epilepsy type: unspecified Intractability: not intractable Status epilepticus: without status epilepticus Bilateral neuropathy of upper extremities G56.93 Assessment & Plan Assessment & Plan (1) Physical exam: Code(s): Z00.00 - Encounter for general adult medical examination without abnormal findings (2) Epileptic seizures: Code(s): G40.909 - Epilepsy, unspecified, not intractable, without status epilepticus Category: Medical Qualifiers: Epilepsy type: unspecified Intractability: not intractable Status ep ilepticus: without status epilepticus Qualified Code(s): G40.909 - Epilepsy, unspecified, not intractable, without status epilepticus (3) Bilateral neuropathy of upper extremities: Code(s): G56.93 - Unspecified mononeuropathy of bilateral upper limbs Category: Medical Plan 50 year old for CPE Interval history reviewed Allergies-stable on kaveh B/L upper extremity neuropathy, weakness-check labs, neck xray Referral gi placed Mammo further testing has appropriate biology laboratory assistant shceduled Orders: Orders Complete Blood Count Auto Diff Today G40.909 - Epilepsy, unspecified, not intractable, without status epilepticus, I10 - Essential (primary) hypertension, Z00.00 - Encounter for general adult medical examination without abnormal find ings, Z88.9 - Allergy status to unspecified drugs, medicaments and biological substances TSH reflex Free T4 Today G40.909 - Epilepsy, unspecified, not intractable, without status epilepticus, I10 - Essential (primary) hypertension, Z00.00 - Encounter for general adult medical examination without abnormal findings, Z88.9 - Allergy status to unspecified drugs, medicaments and biological substances Hemoglobin A1c Today G56.93 - Unspecified mononeuropathy of bilateral upper limbs XR cervical spine 4V Today G56.93 - Unspecified mononeuropathy of bilateral upper limbs Comprehensive Met. Panel Today G40.909 - Epilepsy, unspecified, not intractable, without status epilepticus, I10 - Essential (primary) hypertension, Z00.00 - Encounter for general adult medical examination without abnormal findings, Z88.9 - Allergy status to unspecified drugs, medicaments and biological substances Lipid Panel Today G40.909 - Epilepsy, unspecified, not intractable, without status epilepticus, I10 - Essential (primary) hypertension, Z00.00 - Encounter for general adult medical examination without abnormal findings, Z88.9 - Allergy status to unspecified drugs, medicaments and biological substances Vitamin B12 and Folate Today G56.93 - Unspecified mononeuropathy of bilateral upper limbs Referrals Gastroenterology Referral Z12.11 - Encounter for screening for malignant neoplasm of colon
[2025-05-19 14:33] VITALS: BP 136/84
== END 2025-05-19 14:55 | disposition home or self-care (01) ==
LOC: HO.HMCFM 14:14
PROVIDERS: PCP Internal Medicine; Visit Provider Internal Medicine
DX: Z00.00 Encounter for general adult medical examination without abnormal findings (principal); G40.909 Epilepsy, unspecified, not intractable, without status epilepticus; G56.93 Unspecified mononeuropathy of bilateral upper limbs

== ENCOUNTER → 2025-05-19 14:14 | Outpatient (BNVA) | payer MEDICARE, SELFPAY | PROVIDERS: PCP Internal Medicine; Visit Provider Internal Medicine | DX: Z00.00 Encounter for general adult medical examination without abnormal findings (principal); G40.909 Epilepsy, unspecified, not intractable, without status epilepticus; G56.93 Unspecified mononeuropathy of bilateral upper limbs | CPT/HCPCS: 99396 ==

== ENCOUNTER 2025-09-30 09:15 | Outpatient (AMB) | payer MEDICARE, MEDICAID, SELFPAY ==
--- NOTE | 2025-09-30 09:19 | A.OFFVIS_ITS ---
Vital Signs 09/30/25 09:20 Height 4 ft 11 in Weight 146 lb BMI 29.5 BP 119/63 Blood Pressure Location Lt brachial Position Sitting Pulse 74 Intake Visit Reasons: Screening Intake Note: Patient new consult for 1st pre Colonoscopy screening. Patient denies any GI issues for today. Coal Pipeline Operator Required: No Accompanied by: Family/Other Allergies cat dander (cats) Allergy (Mild, Verified 09/30/25 09:50) Unknown lactose Allergy (Mild, Verified 09/30/25 10:14) Unknown Medication List - Last Reconciled 09/30/25 by Radha Haynes CNP fexofenadine (Telma Allergy) 180 mg PO DAILY HPI HPI Screening: Details: Patient is a 50-year-old female with PMH of developmental6 delay, seizures. Referred by PCP for pre colonoscopy screening Patient is accompanied by her DIPIKA Lynda. She reports daily bowel movements without difficulty and denies any abdominal pain, hematochezia, nausea, or vomiting. She also denies heartburn or dysphagia. The patient's appetite is good, and her weight has been stable with a recent tr end towards weight loss due to healthier eating and increased activity. She has a history of a seizure disorder as a child but has been off medication for a year and a half with no seizure activity. She tolerated conscious sedation for a dental procedure in July. The patient's documented allergies to Tegretol and other medications are reported to be inaccurate. The only confirmed allergy, identified through testing, is a mild allergy to cats, and she is also lactose intolerant. Her only daily medication is Telma. Recent lab work from June 2024 showed no anemia and normal kidney and liver function. Her biological family history is unknown. Patient denies: fever/chills, appetite changes, unintentional wt loss or melena/hematochezia. Social hx: -denies ETOH use -denies recreational drug use -non-smoker -denies personal hx of CA -denies significant cardiopulmonary history -tolerated anesthesia in the past without difficulty. PFSH Medical History Pelvic pain Epileptic seizures HTN (hypertension) Surgical History S/P cholecystectomy Family History (Updated 09/30/25 @ 09:51 by Radha Haynes CNP) Mother Family history unknown Other FH: mental illness Social History Housing: House (With brother and sister and law.) Patient Tobacco Use Status: Never used Tobacco e-Cigarette/Vaping Use: Never Used Second Hand Smoke Exposure: No service: Yes Current occupational status: unemployed Cognitive needs: Yes Hearing needs: No Vision needs: No Review of Systems Const Reports as per HPI ENT Reports as per HPI Card Reports as per HPI Resp Reports as per HPI GI Reports as per HPI Reports as per HPI Physical Exam Vital Signs: Last Vital Signs Pulse 74 09/30/25 09:20 BP 119/63 09/30/25 09:20 BMI result Body Mass Index 29.5 Const General: healthy appearing, no acute distress and well developed Nutritional Appearance: average body habitus Orientation/consciousness: patient oriented x3 HEENT Head: Yes normal to inspection, Yes normocephalic and Yes atraumatic Face and sinus: Yes normal facial exam Eyes General: appearance normal, both eyes and all related structures Neck Neck: Yes normal visual inspection Resp Effort & Inspection: normal respiratory effort, able to speak in complete sentences, no tracheal deviation and symmetric chest movement Cardio Jugular venous distension: no JVD GI Inspection: Yes normal to inspection and No distended Palpation (GI): Soft to palpation, not firm, nontender and No hepatosplenomegaly present Auscultation: normal bowel sounds Neuro General: patient oriented x3 Gait exam (Neuro): Normal gait present Psych Appearance: grossly normal Mental Status: mental status grossly normal Speech and movement: Normal speech and movement present Affect: normal affect Attitude: cooperative Thought process: Normal thought process present Thought content: Normal thought content present Insight: Good insight present (Psych) Judgement: Good judgement present (Psych) Assessment & Plan Assessment & Plan (1) Screening for colon cancer: Code(s): Z12.11 - Encounter for screening for malignant neoplasm of colon Category: Medical Plan: Due for index screening colonoscopy. We also discussed that Cologuard is an alternative but that they prefer to proceed with colonoscopy, which is the most definitive screening test. Medications: -prescriptions for laxative tablets and MiraLax sent to pharmacy; instructions for Gatorade purchase and clear liquid diet given. Patient educated on scheduling process, procedure preparation, including avoiding certain foods and ensuring clear liquid intake Advised on necessity for ride post-procedure due to sedation. A follow-up appointment will be scheduled in the office after the procedure to review the results. Plan Follow-up after colonoscopy or sooner as needed Time: I spent a total of 30 minutes on the date of encounter which includes: Preparing to see the patient (reviewed previous documentation, test results and medical history) Performing a medically appropriate exam and/or evaluation Ordering medications, tests, and procedures Documenting clinical information in the health record Orders: Referrals GI Procedure Notification Z12.11 - Encounter for screening for malignant neoplasm of colon Medications: New bisacodyl take four tablets once day of colonoscopy prep 20 mg (4 x 5 mg) PO ONCE 4 tabs 0RF polyethylene glycol 3350 (Miralax) per colonoscopy prep instructions 238 grams PO ONCE 238 grams 0RF Coding Level of Care Code New Pt New Pt Level 3 (14809) Patient Type New Diagnoses Screening for colon cancer Z12.11
[2025-09-30 09:20] VITALS: BP 119/63; PULSE 74; BMI 29.5
== END 2025-09-30 10:01 | disposition home or self-care (01) ==
LOC: HO.HGI 09:15
PROVIDERS: PCP Internal Medicine; Visit Provider Nurse Practitioner Family
DX: Z01.818 Encounter for other preprocedural examination (principal); Z12.11 Encounter for screening for malignant neoplasm of colon
CPT/HCPCS: 99024

== ENCOUNTER 2025-09-30 09:15 | Outpatient (REF) | payer MEDICARE, MEDICAID, SELFPAY ==
--- NOTE | ~2025-09-30 | XR_ITS ---
EXAMINATION: XR CERVICAL SPINE CLINICAL INFORMATION: G56.93 - Unspecified mononeuropathy of bilateral upper limbs COMPARISON: None available. TECHNIQUE: 5 views of the cervical spine were obtained. FINDINGS: Bone alignment is normal. No fracture or dislocation. Normal disc spaces. Left-sided neuroforaminal narrowing at C3-4 from bony osteophyte. Neural foramen are otherwise patent. Prevertebral soft tissues are normal. Soft tissue calcification or ossification posterior to the C4 and C5 spinous processes likely related to old trauma. XR/XR cervical spine 4V IMPRESSION: Left-sided neuroforaminal narrowing from bony osteophyte at C3-4. Electronically signed by: Carri Haynes MD 09/30/2025 10:45 AM EST
[2025-09-30 10:22] LABS: MANUAL DIFF FLAG NO
[2025-09-30 10:59] LABS: Hematocrit 44.4 % (37.0-47.0); Hemoglobin 15.0 g/dl (12.0-16.0); Imm Gran Abs Auto 0.01 X10*3/uL (0.00-0.03); Imm Gran Pct Auto 0.2 % (0.0-0.4); Lymphocytes Absolute Auto 1.3 X10*3/uL (1.2-4.9); Mean Corpuscular HGB Conc 33.8 g/dl (31.0-35.0); Mean Corpuscular Hemoglobin 32.0 pg (27.0-33.0); Mean Corpuscular Volume 94.7 fL (80.0-98.0); NRBC Abs Auto 0.000 X10*3/uL (0.0-0.012); NRBC Pct Auto 0.0 /100WBC (0.0-0.2); Platelet Count 177 X10*3/uL (160-400); Red Blood Count 4.69 X10*6/uL (4.20-5.50); White Blood Count 5.6 X10*3/uL (4.8-10.8)
[2025-09-30 12:17] LABS: Alanine Aminotransferase 30 U/L (0-31); Albumin Level 4.8 g/dL (3.5-5.0); Alkaline Phosphatase 104 U/L (39-117); Anion Gap 9 (12-20); Aspartate Amino Transferase 27 U/L (5-31); Blood Urea Nitrogen 10 mg/dL (9-16); Calcium 9.1 mg/dL (8.4-10.2); Carbon Dioxide 27 mmol/L (22-29); Chloride 107 mmol/L (96-108); Cholesterol 179 mg/dL (<200); Estimated Glomerular Filt Rate > 60; HDL Cholesterol 62 mg/dL (>40); Potassium 3.7 mmol/L (3.3-5.1); Sodium 139 mmol/L (135-145); Total Protein 8.6 g/dL (6.5-8.0); Triglycerides 68 mg/dL (<150)
[2025-09-30 12:45] LABS: Folate 13.0 ng/mL (> or = 4.0); Vitamin B12 365 pg/mL (200-900)
== END 2025-09-30 09:16 | disposition home or self-care (01) ==
LOC: HO.LAB 09:15
PROVIDERS: Absent Provider Internal Medicine; PCP Internal Medicine; Visit Provider Nurse Practitioner Family
DX: Z00.00 Encounter for general adult medical examination without abnormal findings (principal); G40.909 Epilepsy, unspecified, not intractable, without status epilepticus; G56.93 Unspecified mononeuropathy of bilateral upper limbs; I10 Essential (primary) hypertension; Z13.1 Encounter for screening for diabetes mellitus; Z88.9 Allergy status to unspecified drugs, medicaments and biological substances
CPT/HCPCS: 36415; 72050; 80053; 80061; 82607; 82746; 83036; 84443; 85025

== ENCOUNTER → 2025-09-30 10:24 | Outpatient (BNV) | payer MEDICARE, MEDICAID, SELFPAY | PROVIDERS: Absent Provider Internal Medicine; PCP Internal Medicine; Visit Provider Radiology Diagnostic Radiology | DX: M99.61 Osseous and subluxation stenosis of intervertebral foramina of cervical region (principal); G56.93 Unspecified mononeuropathy of bilateral upper limbs | CPT/HCPCS: 72050 ==